=== PATIENT | male | born 1980 | race Two or more races ===

== ENCOUNTER 2024-07-15 10:05 | Emergency (ER) | payer OTHER ==
[~2024-07-15] VITALS: Ht 160 cm; Wt 72.6 kg
[2024-07-15 10:08] VITALS: O2SAT 98
[2024-07-15] MEDS ORDERED: diphenhydrAMINE 50 MG/1 ML VIAL ONE ×2 (10:36→12:29)
[2024-07-15] MEDS ORDERED: HALOPERIDOL LACTATE 5 MG/1 ML VIAL ONE ×2 (10:36→12:30)
[2024-07-15] MEDS ORDERED: LORAZEPAM 2 MG/1 ML VIAL ONE ×2 (10:37→12:30)
[2024-07-15 10:45] LABS: BASOPHILS # (AUTO) 0.1 K/UL (0.0-0.2); BASOPHILS % (AUTO) 0.4 % (0.0-2.0); EOSINOPHILS % (AUTO) 0.1 % (0.0-7.0); HEMATOCRIT 48.5 % (36.7-47.1); HEMOGLOBIN 16.3 g/dL (12.5-16.3); LYMPHOCYTES # (AUTO) 0.6 K/uL (0.8-4.8); LYMPHOCYTES % (AUTO) 4.1 % (20.5-51.5); MEAN CORPUSCULAR HEMOGLOBIN 31.2 uug (23.8-33.4); MEAN CORPUSCULAR HGB CONC 34 g/dL (32.5-36.3); MEAN CORPUSCULAR VOLUME 92.9 fL (73.0-96.2); MONOCYTES # (AUTO) 0.3 K/uL (0.1-1.30); MONOCYTES % (AUTO) 1.8 % (0.0-11.0); NEUTROPHILS # (AUTO) 13.1 K/uL (1.8-8.9); NEUTROPHILS % (AUTO) 93.6 % (38.5-71.5); PLATELET COUNT (AUTO) 255 K/uL (152-348); RED BLOOD CELL COUNT(AUTO) 5.22 MIL/uL (4.06-5.63); RED CELL DISTRIBUTION WIDTH 13.4 % (12.1-16.2)
[2024-07-15] MEDS: LORAZEPAM 2 MG/1 ML VIAL IV ONE (10:48)
[2024-07-15] MEDS: HALOPERIDOL LACTATE 5 MG/1 ML VIAL IV ONE (10:49)
[2024-07-15] MEDS: diphenhydrAMINE 50 MG/1 ML VIAL IV ONE (10:49)
[2024-07-15] MEDS: IV NORMAL SALINE 1000 ML BAG IV ONE ×2 (10:49→11:53)
[2024-07-15 10:59] LABS: AMMONIA 23 umol/L (11-32); ETHANOL < 3 MG/DL (0-10)
[2024-07-15 11:00] LABS: DIFFERENTIAL COMMENT 1
[2024-07-15 11:00] LABS: *BLOOD, URINE NEGATIVE (NEGATIVE); *CLARITY,URINE CLEAR (CLEAR); *COLOR,URINE YELLOW (YELLOW); *KETONES,URINE NEGATIVE (NEGATIVE); *PROTEIN,URINE 2+ (NEGATIVE); *UROBILINOGEN,URINE 0.2 E.U./dl (NORMAL); LEUKOCYTE ESTERASE ,URINE NEGATIVE (NEGATIVE); NITRITE, URINE NEGATIVE (NEGATIVE); PH,URINE 5.5 (5.0-8.0); UGLUCOSE NEGATIVE (NEGATIVE)
[2024-07-15 11:09] LABS: CALCIUM 10.1 mg/dL (8.5-10.1); CARBON DIOXIDE 19 mmol/L (21-32); CHLORIDE 105 mmol/L (98-107); GLUCOSE 145 mg/dL (74-106); SODIUM SERUM 143 mmol/L (136-145); UREA NITROGEN, BLOOD 20 mg/dL (7-18)
[2024-07-15 11:11] LABS: *BILIRUBIN,URIN 1+ (NEGATIVE)
[2024-07-15 11:13] LABS: *AMPHETAMINE, URINE NEGATIVE (NEGATIVE); *BARBITURATE, URINE NEGATIVE (NEGATIVE); *BENZODIAZEPINE, URINE NEGATIVE (NEGATIVE); *CANNABINOID, URINE POSITIVE (NEGATIVE); *COCCAINE, URINE NEGATIVE (NEGATIVE); *OPIATE, URINE NEGATIVE (NEGATIVE); *PHENCYCLIDINE SCREEN,URINE NEGATIVE (NEGATIVE); FENTANYL, URINE NEGATIVE (NEGATIVE)
[2024-07-15 11:13] LABS: ALANINE AMINOTRANSFERASE 31 U/L (16-63); ALBUMIN 4.1 g/dL (3.4-5.0); ALKALINE PHOSPHATASE 88 U/L (50-136); ASPARTATE AMINOTRANSFERASE 24 U/L (15-37); BILIRUBIN,DIRECT 0.2 mg/dL (0.0-0.2); BILIRUBIN,TOTAL 0.4 mg/dL (0.2-1.0); TOTAL PROTEIN, SERUM 8.4 g/dL (6.4-8.2)
[2024-07-15 11:14] LABS: ACETAMINOPHEN < 2.0 ug/mL (10-30)
[2024-07-15 11:15] LABS: LACTIC ACID 2.4 mmol/L (0.4-2.0)
[2024-07-15 11:22] LABS: POTASSIUM 4.1 mmol/L (3.5-5.1)
[2024-07-15 11:42] LABS: BACTERIA,URINE MODERATE /HPF (NONE SEEN); WBC,URINE 0-3 /HPF (0-3)
[2024-07-15 11:43] LABS: SQUAMOUS EPITHELIAL CELL,UR FEW /HPF (NONE SEEN)
[2024-07-15] MEDS: LORAZEPAM 2 MG/1 ML VIAL IM ONE (12:33)
[2024-07-15] MEDS: diphenhydrAMINE 50 MG/1 ML VIAL IM ONE (12:33)
[2024-07-15] MEDS: HALOPERIDOL LACTATE 5 MG/1 ML VIAL IM ONE (12:33)
== END 2024-07-15 12:37 | disposition left against medical advice (07) ==
LOC: ER 10:12
DX: F12.10 Cannabis abuse, uncomplicated (principal); R11.2 Nausea with vomiting, unspecified
CPT/HCPCS: 80076; 80048; 81001; 82140; 83690; 85025; 85730; 87040 ×2; 84484; 36415; 93005; 99284; 96361; 96374; 96375; 96372; 83605; 80299; 80320; 80307; J1200 ×2; J1630 ×2; J2060 ×2; J7040; A4606; A4663; G0480

== ENCOUNTER 2024-07-22 08:06 | Emergency (ER) | payer OTHER ==
[~2024-07-22] VITALS: Ht 162.6 cm; Wt 68.5 kg
[2024-07-22] MEDS ORDERED: diphenhydrAMINE 50 MG/1 ML VIAL ONE (08:35)
[2024-07-22] MEDS ORDERED: HALOPERIDOL LACTATE 5 MG/1 ML VIAL ONE (08:35)
[2024-07-22] MEDS ORDERED: LORAZEPAM 2 MG/1 ML VIAL ONE (08:36)
[2024-07-22] MEDS: diphenhydrAMINE 50 MG/1 ML VIAL IV ONE (08:44)
[2024-07-22] MEDS: LORAZEPAM 2 MG/1 ML VIAL IV ONE (08:44)
[2024-07-22] MEDS: HALOPERIDOL LACTATE 5 MG/1 ML VIAL IV ONE (08:44)
[2024-07-22 09:23] LABS: BASOPHILS % (AUTO) 0.3 % (0.0-2.0); EOSINOPHILS % (AUTO) 0.3 % (0.0-7.0); HEMATOCRIT 46.6 % (36.7-47.1); HEMOGLOBIN 15.9 g/dL (12.5-16.3); LYMPHOCYTES # (AUTO) 1.9 K/uL (0.8-4.8); LYMPHOCYTES % (AUTO) 15.7 % (20.5-51.5); MEAN CORPUSCULAR HEMOGLOBIN 31.6 uug (23.8-33.4); MEAN CORPUSCULAR HGB CONC 34 g/dL (32.5-36.3); MEAN CORPUSCULAR VOLUME 92.5 fL (73.0-96.2); MONOCYTES # (AUTO) 0.8 K/uL (0.1-1.30); MONOCYTES % (AUTO) 6.8 % (0.0-11.0); NEUTROPHILS # (AUTO) 9.5 K/uL (1.8-8.9); NEUTROPHILS % (AUTO) 76.9 % (38.5-71.5); PLATELET COUNT (AUTO) 325 K/uL (152-348); RED BLOOD CELL COUNT(AUTO) 5.04 MIL/uL (4.06-5.63); RED CELL DISTRIBUTION WIDTH 13.6 % (12.1-16.2); WHITE BLOOD COUNT (AUTO) 12.3 K/uL (3.6-10.2)
[2024-07-22 09:38] LABS: DIFFERENTIAL COMMENT 1
[2024-07-22 10:24] LABS: ALANINE AMINOTRANSFERASE 44 U/L (16-63); ALBUMIN 4.2 g/dL (3.4-5.0); ALKALINE PHOSPHATASE 90 U/L (50-136); ASPARTATE AMINOTRANSFERASE 11 U/L (15-37); BILIRUBIN,DIRECT 0.2 mg/dL (0.0-0.2); BILIRUBIN,TOTAL 0.6 mg/dL (0.2-1.0); CALCIUM 9.7 mg/dL (8.5-10.1); CARBON DIOXIDE 24 mmol/L (21-32); CHLORIDE 105 mmol/L (98-107); CREATININE 0.9 mg/dL (0.6-1.3); GLUCOSE 114 mg/dL (74-106); SODIUM SERUM 143 mmol/L (136-145); UREA NITROGEN, BLOOD 14 mg/dL (7-18)
[2024-07-22 16:25] VITALS: BP 133/78; O2SAT 99
[2024-07-22 18:54] LABS: LIPASE 52 U/L (16-77)
== END 2024-07-22 16:27 | disposition home or self-care (01) ==
LOC: ER 08:06
DX: R11.2 Nausea with vomiting, unspecified (principal); F12.10 Cannabis abuse, uncomplicated; Z87.19 Personal history of other diseases of the digestive system
CPT/HCPCS: 99284; 96374; 96375; 80076; 80048; 83690; 85025; 85730; 84484; 36415; J1200; J1630; J2060; A4606; A4663